=== PATIENT | male | born 1970 | race Native Hawaiian/Other Pacific Islander ===

== ENCOUNTER 2023-03-02 21:35 | Emergency (ER) | payer OTHER ==
[~2023-03-02] VITALS: Ht 177.8 cm; Wt 98.9 kg
[2023-03-02 21:35] VITALS: BP 147/99; TEMP 97.6
[2023-03-02 22:14] LABS: PLATELET COUNT 292 K/uL (142-355)
[2023-03-02 22:26] LABS: POTASSIUM 3.6 mmol/L (3.6-5.2)
[2023-03-03] MEDS ORDERED: AMITRIPTYLIN100 MG PO (06:26)
[2023-03-03] MEDS ORDERED: ARIPIPRAZOLE10 MG PO (06:26)
[2023-03-03] MEDS ORDERED: LIPITOR80 MG PO (06:27)
[2023-03-03] MEDS ORDERED: ASPIRIN81 M1 PO (06:27)
[2023-03-03] MEDS ORDERED: ESCITALOPRAM5 MG PO (06:28)
[2023-03-03] MEDS ORDERED: TAMS0.4C PO (06:29)
[2023-03-03] MEDS ORDERED: KETO2SHA7 TOP (06:30)
[2023-03-03] MEDS ORDERED: MONT10TA PO (06:31)
[2023-03-03] MEDS ORDERED: LISINOPRIL PO (06:31)
[2023-03-03] MEDS ORDERED: OMEPRAZOLE DR40 MG PO (06:32)
[2023-03-03] MEDS ORDERED: PRAZ1CAP16 PO (06:32)
[2023-03-03] MEDS ORDERED: TRAZ50TA36 PO (06:33)
[2023-03-03] MEDS ORDERED: UTI-STAT PO (06:34)
[2023-03-03] MEDS ORDERED: CARBAMAZEPIN200 M1 PO (06:35)
[2023-03-03] MEDS ORDERED: FAMO20TA4 PO (06:36)
[2023-03-03] MEDS ORDERED: DOK100 MG PO (06:36)
[2023-03-03] MEDS ORDERED: METO25TA4 PO (06:37)
[2023-03-03] MEDS ORDERED: BACLOFEN20 MG PO (06:39)
[2023-03-03] MEDS ORDERED: NABU750T PO (06:39)
[2023-03-03] MEDS ORDERED: BETHANECHOL CHL50 MG PO (06:40)
[2023-03-03] MEDS ORDERED: GABA300C2 PO (06:41)
[2023-03-03] MEDS ORDERED: DICLOFENAC SODIUM1 % TOP (06:42)
[2023-03-03] MEDS ORDERED: PERCOCET1 TA3 PO (06:42)
== END 2023-03-02 22:53 | disposition other institution (70) ==
LOC: ED 21:35
PROVIDERS: Family Medicine
DX: F29 Unspecified psychosis not due to a substance or known physiological condition (principal); Z02.79 Encounter for issue of other medical certificate
CPT/HCPCS: 36415; 80053; 81000; 85027; 87077; 87086; 87088; 87186; 87635; 93005; 99283; U0003